=== PATIENT | male | born 1980 | race Caucasian/White ===

== ENCOUNTER 2021-07-18 09:59 | Inpatient (IN) | payer OTHER ==
[2021-07-18 10:45] VITALS: BMI 21.2
[2021-07-18] MEDS ORDERED: LOPERAMIDE HCL 2 MG CAPSULE PO PRN (11:57)
[2021-07-18] MEDS ORDERED: ONDANSETRON *ODT* 4 MG TABLET SL PRN (11:57)
[2021-07-18] MEDS ORDERED: MENTHOL/PHENOL 1 EACH UD MM PRN (11:57)
[2021-07-18] MEDS ORDERED: MAG HYDROX/AL HYDROX/SIMETH 30 ML UNIT-DOSE CUP PO PRN (11:57)
[2021-07-18] MEDS ORDERED: MAGNESIUM HYDROX 2400MG/30ML ORAL SUSPENSION 30 ML CUP PO PRN (11:57)
[2021-07-18] MEDS ORDERED: ACETAMINOPHEN 325 MG TABLET (FP) PO PRN ×2 (11:57)
[2021-07-18] MEDS ORDERED: IBUPROFEN 400 MG TABLET (FP) PO PRN (11:57)
[2021-07-18] MEDS ORDERED: BISMUTH SUBSALICYLATE 524 MG/30 ML PO PRN (11:57)
[2021-07-18] MEDS ORDERED: METHOCARBAMOL 500 MG TABLET PO PRN (11:57)
[2021-07-18] MEDS ORDERED: cloNIDine HCL 0.1 MG TABLET PO PRN (11:57)
[2021-07-18] MEDS ORDERED: MAGNESIUM CITRATE 300 ML BOTTLE PO PRN (11:57)
[2021-07-18] MEDS ORDERED: methaDONE HCL 10 MG TABLET (FOR DETOX USE ONLY) PO ONE (14:00)
[2021-07-18] MEDS: hydrOXYzine PAMOATE 25 MG CAPSULE (FP) PO SCH ×3 (14:08→22:40)
[2021-07-18] MEDS: NICOTINE 10 MG CARTRIDGE (INHALER) IH PRN (20:47)
[2021-07-18] MEDS: MELATONIN 5 MG TABLETS PO SCH (22:40)
[2021-07-18] MEDS: THIAMINE HCL 100 MG TABLET (FP) PO SCH (22:40)
[2021-07-19] MEDS: hydrOXYzine PAMOATE 25 MG CAPSULE (FP) PO SCH ×5 (07:08→22:45)
[2021-07-19] MEDS ORDERED: diazePAM 5 MG TABLET PO PRN (09:05)
[2021-07-19] MEDS ORDERED: methaDONE HCL 10 MG TABLET (FOR DETOX USE ONLY) ONE (09:12)
[2021-07-19] MEDS ORDERED: PRENATAL VITAMINS W/ FOLIC ACID TABLET (FP) PO SCH (10:00)
[2021-07-19] MEDS: NICOTINE 10 MG CARTRIDGE (INHALER) IH PRN (10:07)
[2021-07-19 18:15] VITALS: BP 134/78; PULSE 63; TEMP 98.4
[2021-07-19] MEDS: MELATONIN 5 MG TABLETS PO SCH (22:45)
[2021-07-19] MEDS: THIAMINE HCL 100 MG TABLET (FP) PO SCH (22:46)
[2021-07-20] MEDS: hydrOXYzine PAMOATE 25 MG CAPSULE (FP) PO SCH (08:06)
[2021-07-20] MEDS ORDERED: methaDONE HCL 10 MG TABLET (FOR DETOX USE ONLY) PO ONE (10:00)
[2021-07-20 10:46] LABS: HEMATOCRIT 40.2 % (35.4-49); HEMOGLOBIN 13.5 GM/dL (11.7-16.9); MCH 28.5 pg (25.7-33.7); MCHC 33.7 g/dl (32.0-35.9); MEAN CELL VOLUME 84.7 fl (80-96); MEAN PLT VOLUME 8.6 fl (7.5-11.1); PLATELET COUNT 172 10^3/uL (134-434); RBC 4.75 M/mm3 (4.00-5.60); RDW 13.6 % (11.9-15.9); WHITE BLOOD COUNT 5.3 K/mm3 (4.0-10.0)
[2021-07-20 10:54] LABS: ALBUMIN 3.6 g/dl (3.4-5.0); BLOOD UREA NITROGEN 11.4 mg/dL (7-18); CALCIUM 9.2 mg/dL (8.5-10.1)
[2021-07-20 10:57] LABS: CREATININE 0.9 mg/dL (0.55-1.3)
[2021-07-20 10:59] LABS: BILIRUBIN,TOTAL 0.7 mg/dL (0.2-1); TOT PROT 8.5 g/dl (6.4-8.2)
[2021-07-20 14:07] LABS: SARS-CoV-2 NAA Not Detected (Not Detected)
[2021-07-22] MEDS ORDERED: methaDONE HCL 10 MG TABLET (FOR DETOX USE ONLY) PO ONE (10:00)
== END 2021-07-20 09:05 | disposition left against medical advice (07) | DRG 770 ==
LOC: YASAS 09:59 → Y3N 13:18
PROVIDERS: ADMIT Allergy & Immunology; ATTEND Allergy & Immunology
PROC: HZ2ZZZZ Detoxification Services for Substance Abuse Treatment (ICD-10-PCS; principal; 2021-07-18)
DX: F11.23 Opioid dependence with withdrawal (principal); F14.20 Cocaine dependence, uncomplicated; F17.210 Nicotine dependence, cigarettes, uncomplicated
CPT/HCPCS: 36415; 80053; 85027; 86780; C9803; U0003; U0005

== ENCOUNTER 2021-09-05 13:08 | Inpatient (IN) | payer OTHER ==
[2021-09-05 14:45] VITALS: BMI 20.9
[2021-09-05] MEDS ORDERED: LOPERAMIDE HCL 2 MG CAPSULE PO PRN (17:03)
[2021-09-05] MEDS ORDERED: ONDANSETRON *ODT* 4 MG TABLET SL PRN (17:03)
[2021-09-05] MEDS ORDERED: BISMUTH SUBSALICYLATE 524 MG/30 ML PO PRN (17:03)
[2021-09-05] MEDS ORDERED: ACETAMINOPHEN 325 MG TABLET (FP) PO PRN ×2 (17:03)
[2021-09-05] MEDS ORDERED: BENZOCAINE/MENTHOL (CHLORASEPTIC ) LOZENGE MM PRN (17:03)
[2021-09-05] MEDS ORDERED: MAG HYDROX/AL HYDROX/SIMETH 30 ML UNIT-DOSE CUP PO PRN (17:03)
[2021-09-05] MEDS ORDERED: METHOCARBAMOL 500 MG TABLET PO PRN (17:03)
[2021-09-05] MEDS ORDERED: DICYCLOMINE HCL 10 MG CAPSULE PO PRN (17:03)
[2021-09-05] MEDS ORDERED: methaDONE HCL 10 MG TABLET (FOR DETOX USE ONLY) PO ONE (17:03)
[2021-09-05] MEDS ORDERED: IBUPROFEN 400 MG TABLET (FP) PO PRN (17:03)
[2021-09-05] MEDS ORDERED: MAGNESIUM HYDROX 2400MG/30ML ORAL SUSPENSION 30 ML CUP PO PRN (17:03)
[2021-09-05] MEDS ORDERED: cloNIDine HCL 0.1 MG TABLET PO PRN (17:03)
[2021-09-05] MEDS ORDERED: NICOTINE 10 MG CARTRIDGE (INHALER) IH PRN (17:03)
[2021-09-05] MEDS ORDERED: MAGNESIUM CITRATE 300 ML BOTTLE PO PRN (17:03)
[2021-09-05] MEDS ORDERED: diazePAM 5 MG TABLET PO PRN (17:11)
[2021-09-05] MEDS: hydrOXYzine PAMOATE 25 MG CAPSULE (FP) PO SCH ×2 (19:36→23:37)
[2021-09-05] MEDS: MELATONIN 5 MG TABLETS PO SCH (23:37)
[2021-09-05] MEDS: THIAMINE HCL 100 MG TABLET (FP) PO SCH (23:37)
[2021-09-06] MEDS: hydrOXYzine PAMOATE 25 MG CAPSULE (FP) PO SCH ×6 (05:59→22:53)
[2021-09-06] MEDS ORDERED: methaDONE HCL 10 MG TABLET (FOR DETOX USE ONLY) ONE (09:08)
[2021-09-06] MEDS ORDERED: PRENATAL VITAMINS W/ FOLIC ACID TABLET (FP) PO SCH (10:00)
[2021-09-06] MEDS: THIAMINE HCL 100 MG TABLET (FP) PO SCH (22:53)
[2021-09-06] MEDS: MELATONIN 5 MG TABLETS PO SCH (22:53)
[2021-09-07] MEDS: hydrOXYzine PAMOATE 25 MG CAPSULE (FP) PO SCH (05:54)
[2021-09-07 09:15] VITALS: BP 145/89; PULSE 64; TEMP 97.7
[2021-09-07] MEDS ORDERED: methaDONE HCL 10 MG TABLET (FOR DETOX USE ONLY) PO ONE (10:00)
[2021-09-07 12:11] LABS: SARS-CoV-2 NAA Not Detected (Not Detected)
[2021-09-09] MEDS ORDERED: methaDONE HCL 10 MG TABLET (FOR DETOX USE ONLY) PO ONE (10:00)
== END 2021-09-07 09:18 | disposition left against medical advice (07) | DRG 770 ==
LOC: YASAS 13:08 → Y6N 18:19
PROVIDERS: ADMIT Allergy & Immunology; ATTEND Allergy & Immunology
PROC: HZ2ZZZZ Detoxification Services for Substance Abuse Treatment (ICD-10-PCS; principal; 2021-09-05)
DX: F11.23 Opioid dependence with withdrawal (principal); F14.20 Cocaine dependence, uncomplicated; F17.210 Nicotine dependence, cigarettes, uncomplicated; F31.9 Bipolar disorder, unspecified; R63.4 Abnormal weight loss; Z68.20 Body mass index [BMI] 20.0-20.9, adult
CPT/HCPCS: C9803-CS; U0003; U0005